=== PATIENT | female | born 1935 ===

== ENCOUNTER → 2022-04-02 13:44 | Outpatient (BNVA) | payer MEDICARE, SELFPAY | PROVIDERS: Family Provider Family Medicine; Visit Provider Podiatrist Foot & Ankle Surgery | DX: M19.071 Primary osteoarthritis, right ankle and foot (principal); G62.9 Polyneuropathy, unspecified | CPT/HCPCS: 73630; 99204 ==

== ENCOUNTER → 2022-07-30 13:50 | Outpatient (BNVA) | payer MEDICARE, SELFPAY | PROVIDERS: Family Provider Family Medicine; Visit Provider Podiatrist Foot & Ankle Surgery | DX: M19.071 Primary osteoarthritis, right ankle and foot (principal); G62.9 Polyneuropathy, unspecified | CPT/HCPCS: 99213 ==